=== PATIENT | female | born 1970 | race African-American/Black ===

== ENCOUNTER 2017-05-23 17:29 | Emergency (ER) | payer MEDICAID, OTHER ==
[~2017-05-23] VITALS: Ht 157.5 cm; Wt 132.0 kg
[2017-05-23] VITALS (8 sets, daily range): BP systolic 170–207; BP diastolic 73–100; PULSE 61–107; RESP 16–18; TEMP 98.4; O2SAT 99–100
[~2017-05-23 17:29] MED LIST: DICY1TAB26 PO; DOCU1CAP39 PO; GLUCTAB PO; HYDR-3533 PO; HYDR12.56 PO; IRON27TA PO; LISI40TA PO
[2017-05-23] MEDS ORDERED: HYDR25TA5 PO ×2 (18:03→21:21)
[2017-05-23] MEDS ORDERED: LISI10TA3 PO ×2 (18:03→21:21)
[2017-05-23] MEDS ORDERED: SODIUM CHLORIDE 0.9% FLUSH 10 ML FLUSH IVF PRN (18:15)
[2017-05-23] MEDS ORDERED: traMADol HCL 50 MG TAB PO ONE (18:15)
[2017-05-23] MEDS ORDERED: ENALAPRILAT 2.5 MG/2 ML VIAL IV PUSH ONE (18:15)
[2017-05-23] MEDS ORDERED: ORPHENADRINE INJ 60 MG/2 ML AMP IV ONE (18:15)
--- NOTE | 2017-05-23 18:23 | PD ---
HPI Chief Complaint: Musculoskeletal Complaint Time Seen by Provider: 17:56 Travel History International Travel<30 days: No Contact w/Intl Traveler<30days: No Traveled to known affect area: No History of Present Illness HPI Patient is a 47-year-old female presented to the emergency room for evaluation of left arm numbness. Patient states it started on Sunday, she woke up with pain that radiated down her arm into her second and third finger. Patient has been taking ibuprofen and Tylenol with no relief of her symptoms. She called her primary doctor today and was advised to come to the emergency department for evaluation. Patient has no chest pain, shortness of breath, headache, fever , chills, nausea, vomiting. She does report a history of hypertension has been out of her blood pressure medication for the last 3 days because they have to be sent to her mail order pharmacy. Patient has a history of hypertension, diabetes, obesity. She reports her father from a heart attack in his 60s, her mother had a stroke in her 70s. Symptom onset was gradual,, symptoms are mild to moderate nature, symptoms are worse at night. PFSH Past Medical History Diabetes: Yes (PRE-DIABETIC) Hypertension: Yes ?: Not LMP: 04/2016 : 3 Para: 3 Miscarriage: 0 : 0 Past Surgical History Cholecystectomy: Yes Coronary Artery Bypass Graft: No Family History Family Myocardial Infarction: Yes (father massive [place]) Social History Alcohol Use: No (DENIES) Tobacco Use: No (DENIES) Substance Use: No (DENIES) Allergies-Medications (Allergen,Severity, Reaction): Coded Allergies: morphine (Unverified Allergy, Unknown, 09/26/16) Reported Meds & Prescriptions Reported Meds & Active Scripts Active Reported Hydrochlorothiazide 25 Mg Tab 25 Mg PO Lisinopril 10 Mg Tab 10 Mg PO DAILY Review of Systems Except as stated in HPI: all other systems reviewed are Neg HENT: No: Headaches Cardiovascular: No: Chest Pain or Discomfort Respiratory: No: Shortness of Breath Gastrointestinal: No: Nausea, Vomiting, Abdominal Pain Musculoskeletal: Positive: Myalgias Neurologic: Positive: Paresthesia, No: Weakness, Focal Abnormalities Physical Exam Narrative GENERAL: Overweight, well-developed, alert -[place] female. Presenting in no acute distress. SKIN: Warm and dry. HEAD: Atraumatic. Normocephalic. EYES: Pupils equal and round. No scleral icterus. No injection or drainage. ENT: No nasal bleeding or discharge. Mucous membranes pink and moist. NECK: Trachea midline. No JVD. CARDIOVASCULAR: Regular rate and rhythm. RESPIRATORY: No accessory muscle use. Clear to auscultation. Breath sounds equal bilaterally. GASTROINTESTINAL: Abdomen soft, non-tender, nondistended. Hepatic and splenic margins not palpable. MUSCULOSKELETAL: Extremities without clubbing, cyanosis, or edema. No obvious deformities. Tender point to palpation over left scapula. NEUROLOGICAL: Awake and alert. No obvious cranial nerve deficits. Motor grossly within normal limits. Five out of 5 muscle strength in the arms and legs. Normal speech. PSYCHIATRIC: Appropriate mood and affect; insight and judgment normal. Data Data Last Documented VS Vital Signs Date Time Temp Pulse Resp B/P (MAP) Pulse Ox O2 Delivery O2 Flow Rate FiO2 05/23/17 21:07 83 16 170/76 (107) 100 05/23/17 20:05 Room Air 05/23/17 17:37 98.4 Orders Orders Electrocardiogram (05/23/17 18:) Basic Metabolic Panel (Bmp) (05/23/17 18:09) Ckmb (Isoenzyme) Profile (05/23/17 18:09) Complete Blood Count With Diff (05/23/17 18:) Magnesium (Mg) (05/23/17 18:09) Troponin I (05/23/17 18:09) Chest, Single Ap (05/23/17 18:09) Ecg Monitoring (05/23/17 18:09) Iv Access Insert/Monitor (05/23/17 18:) Oximetry (05/23/17 18:) Sodium Chloride 0.9% Flush (Ns Flush) (05/23/17 18:15) Enalaprilat Inj (Vasotec Inj) (05/23/17 18:15) Tramadol (Ultram) (05/23/17 18:15) Orphenadrine Inj (Norflex Inj) (05/23/17 18:15) Hydralazine Inj (Apresoline Inj) (05/23/17 19:45) CKMB (05/23/17 18:45) CKMB% (05/23/17 18:45) Metoprolol Tartrate Inj (Lopressor Inj) (05/23/17 21:00) Labs Laboratory Tests Test 05/23/17 18:45 White Blood Count 7.9 TH/MM3 Red Blood Count 4.56 MIL/MM3 Hemoglobin 9.4 GM/DL Hematocrit 30.2 % Mean Corpuscular Volume 66.2 FL Mean Corpuscular Hemoglobin 20.5 PG Mean Corpuscular Hemoglobin Concent 31.0 % Red Cell Distribution Width 17.4 % Platelet Count 330 TH/MM3 Mean Platelet Volume 9.0 FL Neutrophils (%) (Auto) 60.2 % Lymphocytes (%) (Auto) 33.2 % Monocytes (%) (Auto) 4.2 % Eosinophils (%) (Auto) 1.9 % Basophils (%) (Auto) 0.5 % Neutrophils # (Auto) 4.8 TH/MM3 Lymphocytes # (Auto) 2.6 TH/MM3 Monocytes # (Auto) 0.3 TH/MM3 Eosinophils # (Auto) 0.1 TH/MM3 Basophils # (Auto) 0.0 TH/MM3 CBC Comment DIFF FINAL Differential Comment Blood Urea Nitrogen 13 MG/DL Creatinine 0.72 MG/DL Random Glucose 117 MG/DL Calcium Level 8.8 MG/DL Magnesium Level 1.9 MG/DL Sodium Level 136 MEQ/L Potassium Level 4.2 MEQ/L Chloride Level 106 MEQ/L Carbon Dioxide Level 23.3 MEQ/L Anion Gap 7 MEQ/L Estimat Glomerular Filtration Rate 105 ML/MIN Total Creatine Kinase 161 U/L Creatine Kinase MB 0.8 NG/ML Troponin I LESS THAN 0.02 NG/ML MDM Medical Decision Making Medical Screen Exam Complete: Yes Emergency Medical Condition: Yes Interpretation(s) Vital Signs Date Time Temp Pulse Resp B/P (MAP) Pulse Ox O2 Delivery O2 Flow Rate FiO2 05/23/17 21:07 83 16 170/76 (107) 100 05/23/17 20:47 106 16 206/73 (117) 99 05/23/17 20:05 107 16 203/92 (129) 100 Room Air 05/23/17 19:10 64 16 199/100 (133) 100 Room Air 05/23/17 18:48 61 17 178/82 (114) 100 Room Air 05/23/17 18:37 100 Room Air 05/23/17 17:57 85 17 207/98 (134) 100 Room Air 05/23/17 17:37 98.4 81 18 197/91 (126) 100 Laboratory Tests Test 05/23/17 18:45 White Blood Count 7.9 TH/MM3 Red Blood Count 4.56 MIL/MM3 Hemoglobin 9.4 GM/DL Hematocrit 30.2 % Mean Corpuscular Volume 66.2 FL Mean Corpuscular Hemoglobin 20.5 PG Mean Corpuscular Hemoglobin Concent 31.0 % Red Cell Distribution Width 17.4 % Platelet Count 330 TH/MM3 Mean Platelet Volume 9.0 FL Neutrophils (%) (Auto) 60.2 % Lymphocytes (%) (Auto) 33.2 % Monocytes (%) (Auto) 4.2 % Eosinophils (%) (Auto) 1.9 % Basophils (%) (Auto) 0.5 % Neutrophils # (Auto) 4.8 TH/MM3 Lymphocytes # (Auto) 2.6 TH/MM3 Monocytes # (Auto) 0.3 TH/MM3 Eosinophils # (Auto) 0.1 TH/MM3 Basophils # (Auto) 0.0 TH/MM3 CBC Comment DIFF FINAL Differential Comment Blood Urea Nitrogen 13 MG/DL Creatinine 0.72 MG/DL Random Glucose 117 MG/DL Calcium Level 8.8 MG/DL Magnesium Level 1.9 MG/DL Sodium Level 136 MEQ/L Potassium Level 4.2 MEQ/L Chloride Level 106 MEQ/L Carbon Dioxide Level 23.3 MEQ/L Anion Gap 7 MEQ/L Estimat Glomerular Filtration Rate 105 ML/MIN Total Creatine Kinase 161 U/L Creatine Kinase MB 0.8 NG/ML Troponin I LESS THAN 0.02 NG/ML Last Impressions Chest X-Ray 05/23/17 0237 Signed Impressions: Service Date/Time: Tuesday, May 23, 2017 18:21 - CONCLUSION: No acute disease. Darius Jay MD Differential Diagnosis Hypertensive urgency versus radiculopathy versus nerve impingement versus ACS versus other Narrative Course Patient is a 47-year-old female presenting to the emergency department for evaluation of left arm numbness and pain. Patient is hypertensive on arrival, she has a history of the same but is out of her medications. Initial EKG shows sinus rhythm, this was reviewed by my attending physician. Onset of symptoms was 48 hours ago. At this point we will check basic labs and a set of cardiac enzymes. Physical exam appears most consistent with radiculopathy, nerve impingement. Labs reviewed, no acute findings identified. Cardiac enzymes are negative 1 set. Patient was initially given Enalapril IV, her blood pressure continued to be elevated. She was then given hydralazine, this cause rebound tachycardia, her blood pressure remained elevated. She was then given Lopressor, blood pressure has trended down and is currently 170/76. Again patient has been chest pain- free the entire time, she never had any complaint of chest pain. Exam is consistent with a radiculopathy. Patient will be discharged home, she will be given refills of her medications. She will given a muscle relaxer as well. She is encouraged to follow-up with her primary doctor. She was advised to return to emergency department for any new or worsening symptoms. Plan of care was discussed with Dr. Becker prior to the end of his shift. Negative enzymes, and normal EKG is reassuring that patient's pain is not of cardiac etiology. Diagnosis Primary Impression: Radiculopathy affecting upper extremity Additional Impression: HTN (hypertension) Qualified Codes: I10 - Essential (primary) hypertension Referrals: Primary Care Physician 2 days Patient Instructions: Cervical Radiculopathy (ED), General Instructions, Hypertension (ED) Additional Instructions: Follow-up with your primary doctor Take medications as directed Return to emergency department for any new or worsening symptoms Apply warm heat to the affected area, continue gentle range of motion exercises , avoid exacerbating activities Med/Other Pt SpecificInfo: Prescription(s) given Scripts Acetaminophen-Codeine (Tylenol-Codeine #3) 300-30 mg Tab 1 TAB PO Q4H Y for PAIN, #12 TAB 0 Refills Prov: Brigette Christina 05/23/17 Cyclobenzaprine (Flexeril) 10 Mg Tab 10 MG PO TID Y for MUSCLE SPASM, #30 TAB 0 Refills Prov: Brigette Christina 05/23/17 Hydrochlorothiazide (Hydrochlorothiazide) 25 Mg Tab 25 MG PO DAILY, #30 TAB 0 Refills Prov: Brigette Christina 05/23/17 Lisinopril (Lisinopril) 10 Mg Tab 10 MG PO DAILY, #30 TAB 0 Refills Prov: Brigette Christina 05/23/17 Disposition: 01 DISCHARGE HOME Condition: Stable Brigette Christina May 23, 2017 18:23
--- NOTE | 2017-05-23 18:48 | RADRPT ---
EXAM DATE/TIME: 05/23/2017 18:21 [facility] COMPARISON: CHEST SINGLE AP, May 21, 2015, 23:40. INDICATIONS : Chest pain, left arm numbness starting today MEDICAL HISTORY : Hypertension. SURGICAL HISTORY : None. ENCOUNTER: Initial ACUITY: 1 day PAIN SCORE: 5/10 LOCATION: Left chest FINDINGS: A single view of the chest demonstrates the lungs to be symmetrically aerated without evidence of mas s, infiltrate or effusion. The cardiomediastinal contours are unremarkable. Osseous structures are intact. CONCLUSION: No acute disease. Darius Jay MD on May 23, 2017 at 18:45 Board Certified Radiologist. This report was verified electronically.
[2017-05-23 19:13] LABS: AUTOMATED NEUTROPHIL # 4.8 TH/MM3 (1.8-7.7); BASOPHIL % 0.5 % (0.0-2.0); EOSINOPHIL # 0.1 TH/MM3 (0-0.4); EOSINOPHIL % 1.9 % (0.0-4.0); HEMATOCRIT 30.2 % (35.0-46.0); HEMOGLOBIN 9.4 GM/DL (11.6-15.3); LYMPH % 33.2 % (9.0-44.0); LYMPHOCYTE # 2.6 TH/MM3 (1.0-4.8); MEAN CELL VOLUME 66.2 FL (80.0-100.0); MEAN CORPUSCULAR HEMOGLOBIN 20.5 PG (27.0-34.0); MONO % 4.2 % (0.0-8.0); MONOCYTE # 0.3 TH/MM3 (0-0.9); NEUT % 60.2 % (16.0-70.0); PLATELET COUNT 330 TH/MM3 (150-450); RED BLOOD COUNT 4.56 MIL/MM3 (4.00-5.30); RED CELL DISTRIBUTION WIDTH 17.4 % (11.6-17.2); WHITE BLOOD COUNT 7.9 TH/MM3 (4.0-11.0)
[2017-05-23 19:35] LABS: BICARBONATE 23.3 MEQ/L (21.0-32.0); BLOOD UREA NITROGEN 13 MG/DL (7-18); CALCIUM 8.8 MG/DL (8.5-10.1); CHLORIDE 106 MEQ/L (98-107); CREATININE 0.72 MG/DL (0.50-1.00); GLOMERULAR FILTRATION RATE 105 ML/MIN (>89); GLUCOSE,RANDOM 117 MG/DL (74-106); MAGNESIUM 1.9 MG/DL (1.5-2.5); SODIUM (NA) 136 MEQ/L (136-145)
[2017-05-23 19:41] LABS: TROPONIN I LESS THAN 0.02 NG/ML (0.02-0.05)
[2017-05-23] MEDS ORDERED: hydrALAZINE HCL 20 MG/ML VIAL IV PUSH ONE (19:45)
[2017-05-23] MEDS ORDERED: METOPROLOL TARTRATE 5 MG/5 ML VIAL IV PUSH ONE (21:00)
[2017-05-23] MEDS ORDERED: TYLETAB34 PO (21:21)
[2017-05-23] MEDS ORDERED: CYCL10TA PO (21:21)
--- NOTE | 2017-05-24 18:53 | EKG ---
Date Performed: 05/23/2017 Time Performed: 18:02:19 PTAGE: 47 years EKG: Sinus rhythm NORMAL ECG Since the PREVIOUS TRACING , no significant change noted PREVIOUS TRACIN05/22/15 @0554 DOCTOR: Justo Sood Interpretating Date/Time 05/24/2017 18:48:48
== END 2017-05-23 21:36 | disposition home or self-care (01) ==
LOC: NEPE 17:29
DX: M54.10 Radiculopathy, site unspecified (principal); I10 Essential (primary) hypertension; M79.1 Myalgia; E11.9 Type 2 diabetes mellitus without complications; E66.9 Obesity, unspecified; Z88.5 Allergy status to narcotic agent; Z79.899 Other long term (current) drug therapy
CPT/HCPCS: 71045; 80048; 82550; 82552; 83735; 84484; 85025; 93005; 96374; 96375; 99285; J0360; J2360

== ENCOUNTER 2017-10-08 22:51 | Observation (INO) ==
[2017-10-08] MEDS ORDERED: Sodium Chlor 0.9% Inj 500 ML IV.SIG ONE (23:37)
--- NOTE | 2017-10-08 23:56 | XR ---
EXAM DATE: 10/08/2017 11:54 PM EDT AGE/SEX: 47 years / Female INDICATIONS: Left side chest pressure for 2 days. CLINICAL DATA: This is the patient's initial encounter. Patient reports that signs and symptoms have been present for 2 days and indicates a pain score of 0/10. MEDICAL/SURGICAL HISTORY: Hypertension. Cholecystectomy. COMPARISON: [facility] [place], CHEST SINGLE AP, 05/23/2017. . FINDINGS: A single AP view of the chest demonstrates the lungs to be symmetrically aerated without evidence of mass, infiltrate or effusion. The cardiomediastinal contours are unremarkable. Osseous structures a re intact. CONCLUSION: No evidence of acute cardiopulmonary disease. Electronically signed by: Bran Charles MD 10/08/2017 11:55 PM EDT
[2017-10-08 23:58] LABS: Baso # (Auto) 0.1 th/mm3 (0.0-0.2); Baso % (Auto) 0.6 % (0.0-2.0); Eos # (Auto) 0.1 th/mm3 (0.0-0.4); Eos % (Auto) 1.3 % (0.0-4.0); Hematocrit 34.1 % (35.0-46.0); Hemoglobin 10.7 gm/dL (11.6-15.3); Lymph # (Auto) 2.3 th/mm3 (1.0-4.8); Lymph % (Auto) 27.6 % (9.0-44.0); Mean Corpuscular HGB Conc 31.3 % (32.0-36.0); Mean Corpuscular Hemoglobin 21.3 pg (27.0-34.0); Mean Corpuscular Volume 68.2 fL (80.0-100.0); Mean Platelet Volume 9.4 fL (7.0-11.0); Mono # (Auto) 0.4 th/mm3 (0.0-0.9); Mono % (Auto) 4.4 % (0.0-8.0); Neut # (Auto) 5.5 th/mm3 (1.8-7.7); Neut % (Auto) 66.1 % (16.0-70.0); Platelet Count 295 th/mm3 (150-450); Red Cell Distribution Width 16.6 % (11.6-17.2); White Blood Count 8.3 th/mm3 (4.0-11.0)
[2017-10-09 00:08] LABS: Activated Partial Thrombo Time 26.8 sec (24.3-30.1)
[2017-10-09 00:10] LABS: Alanine Aminotransferase 17 U/L (10-53); Albumin 3.5 g/dL (3.4-5.0); Anion Gap 11 meq/L (5-15); Aspartate Aminotransferase 10 U/L (15-37); Blood Urea Nitrogen 14 mg/dL (7-18); Calcium 8.8 mg/dL (8.5-10.1); Carbon Dioxide 27.7 meq/L (21.0-32.0); Chloride 100 meq/L (98-107); Glomerular Filtration Rate 60 mL/min (>89); Glucose,Random 295 mg/dL (74-106); Magnesium 1.8 mg/dL (1.5-2.5); Potassium 3.7 meq/L (3.5-5.1); Sodium 139 meq/L (136-145)
[2017-10-09 00:11] VITALS: RESP 18
[2017-10-09 00:18] LABS: Alkaline Phosphatase 107 U/L (45-117); Total Protein 8.2 g/dL (6.4-8.2)
[2017-10-09 00:19] LABS: Creatine Kinase 90 U/L (26-192)
--- NOTE | 2017-10-09 01:53 | ED ---
HPI General Chief complaint: Recheck/Abnormal Lab/Rx Stated complaint: Elelvated blood sugar/some chest pressure Time Seen by Provider: 10/08/17 23:35 Source: patient Limitations: no limitations History of Present Illness HPI narrative: The patient is a 47 year old female who presents to the [facility] emergency department with a history of reportedly not feeling well over the last 2 weeks. She reports that she has had generalized fatigue, with dyspnea on exertion, and intermittent twinges of left-sided chest pain. She reports that the chest pain is random without any alleviating or aggravating factors. She reports that the pain feels sharp and lasts for 10 seconds at a time. The patient reports that this evening she became concerned when she checked her blood sugar and it was noted to be 426. She reports that she normally checks her blood sugar 3 times a day. She reports that has been higher than usual recently. She reports that she has had urinary frequency. Her last hemoglobin A1c was 7.1. She reports that she had episodes of low blood sugar, therefore her metformin was decreased down to 1000 mg once a day by her primary care physician. Her primary care physician is Dr. Lemus. She reports having intermittent episodes of nausea over the last 2 weeks. She denies having any radiation of her chest pain into her arms or up into her jaw. She denies having any prior history of coronary artery disease, DVT, or PE. The patient reports that she has a history of hypertension. She denies any prior history of hyperlipidemia. She denies smoking. On review of systems otherwise, the patient denies having any known recent fevers, cough, congestion , neck pain, abdominal pain, vomiting, diarrhea, urinary symptoms, or neurologic symptoms. Related Data Home Medications Medication Instructions Recorded Confirmed hydrochlorothiazide 25 mg PO DAILY 10/09/17 10/09/17 lisinopril 10 mg PO DAILY 10/09/17 10/09/17 Previous Rx's Medication Instructions Recorded amlodipine [Norvasc] 5 mg PO DAILY tab 10/09/17 metformin 500 mg PO DAILY #0 tab 10/09/17 Allergies Allergy/AdvReac Type Severity Reaction Status Date / Time hydralazine Allergy Severe Tachycardia Verified 10/09/17 08:57 morphine Allergy Severe Shortness Verified 10/09/17 08:57 of Breath Review of Systems ROS: all other systems reviewed are negative (Except for that which was mentioned in the HPI.) PMFSH Medical History Medical History Anemia (Acute) Diabetes (Acute) Gallbladder disease (Acute) Hypertension (Acute) Family History Family History Other Family history of acute myocardial infarction Family history of cancer Family history of diabetes mellitus Social History Social History Substance History: No History of Abuse Second Hand Smoke Exposure: No Smoking Status: Never smoker How Often Do You Have a Drink Containing Alcohol: Monthly or less Recent Travel in [facility] within the Last 8 Weeks: No Recent Out of Country Travel within the Last 8 Weeks: No Immunization History Tetanus Immunization: <5 Years Hx Influenza Vaccine This Season: Yes Exam Const General: cooperative, no acute distress and well developed Nutritional Appearance: obese Orientation: alert, awake and oriented x3 HENMT Head: normocephalic and atraumatic Nose: no nasal discharge and no epistaxis Mouth: moist mucous membranes Throat: posterior oropharynx normal and uvula midline Eyes Sclera: normal sclerae Pupils: PERRL Neck Neck: no meningeal signs, trachea midline and no JVD Resp Effort & Inspection: no use of accessory muscles Auscultation: clear to auscultation bilaterally Cardio Rate: regular rate Rhythm: regular rhythm Heart Sounds: no gallops, no murmurs and no rubs GI Inspection: non-distended Palpation: soft, no hepatosplenomegaly, no guarding, not rigid and nontender Auscultation: normal bowel sounds Back/Spine/Pelvis Back: no CVA tenderness Skin General: dry skin (warm) Neuro General: alert, awake and oriented x3 Cranial Nerves: other Speech: speech normal Motor: no movement abnormalities noted Extrem General: normal to inspection (The patient has an area of swelling to the medial aspect of the left ankle which she reports is new. She denies having any pain associated with this. She denies having any calf pain. 2+ pulses in all 4 extremities.), no clubbing, no cyanosis and no edema Psych Mood: congruent mood Affect: normal affect Judgment: judgment good Course Initial Documented Vital Signs Temperature 98.8 F 10/08/17 22:56 Pulse Rate 109 H 10/08/17 22:56 Respiratory Rate 22 10/08/17 22:56 Blood Pressure 179/96 H 10/08/17 22:56 Pulse Oximetry 100 10/08/17 22:56 Last Documented Vital Signs Temperature 98.8 F 10/09/17 16:00 Pulse Rate 80 10/09/17 16:00 Respiratory Rate 18 10/09/17 16:00 Blood Pressure 149/76 H 10/09/17 16:00 Pulse Oximetry 99 10/09/17 12:00 Medical Decision Making MDM Narrative Medical decision making narrative: During the course of the patient's emergency department visit, the patient's history, examination, and differential diagnosis were reviewed with the patient. The patient was placed on a school bus monitor with oximetry and frequent blood pressure monitoring. The patient had IV access obtained and blood work sent for analysis. A diagnostic evaluation was started regarding the patient's chest pain, shortness of breath, fatigue over the last 2 weeks. The patient was initially provided aspirin 324 mg p.o. 1, sublingual nitroglycerin 1, normal saline a 500 mL bolus. The patient's diagnostic evaluation is remarkable for PT of 10, PTT 26.8, d- dimer elevated at 0.95, therefore a CTA to rule out PE has been ordered.The patient had a chemistry remarkable for troponin I less than 0.02, glucose 295, GFR 60, creatinine 1.17, BNP less than 2, AST 10, lipase within normal limits at 176, magnesium 1.8, WbC is 8.3 with a normal differential, platelets are 295 , hemoglobin is 10.7. A chest x-ray shows no acute cardiopulmonary disease. CTA to rule out PE showed no evidence of pulmonary embolism. The patient has multiple risk factors for coronary artery disease. The patient will be admitted to the chest pain center for rule out serial cardiac enzyme protocol followed by consideration of stress testing. The patient's results were discussed with the patient, including the plan of care. I explained that further testing and/ or monitoring is indicated based on the patient's history, examination, and/ or laboratory findings. Therefore, I recommended admission for additional evaluation. The patient expressed understanding and was agreeable with this plan. The patient was admitted to the hospital in stable condition and sent to a bed under the care of the [facility]. Medical Screen Exam Complete: Yes Emergency Medical Condition: Yes Differential Diagnosis Differential Diagnosis: Acute coronary syndrome, versus complications related to diabetes, versus pulmonary embolism, versus pneumonia, versus pneumothorax, versus acid reflux, versus anxiety disorder Medical Records Medical records reviewed: Yes I reviewed the patient's medical records. Lab Data Result diagrams: 10/08/17 23:47 10/08/17 23:47 POC Results POC Urine Results Negative Lab Results 10/08/17 10/08/17 10/08/17 Range/Units 23:47 23:47 23:47 WBC (4.0-11.0) th/mm3 RBC (4.00-5.30) mil/mm3 Hgb (11.6-15.3) gm/dL Hct (35.0-46.0) % MCV (80.0-100.0) fL MCH (27.0-34.0) pg MCHC (32.0-36.0) % RDW (11.6-17.2) % Plt Count (150-450) th/mm3 MPV (7.0-11.0) fL Neut % (Auto) (16.0-70.0) % Lymph % (Auto) (9.0-44.0) % Schleicher % (Auto) (0.0-8.0) % Eos % (Auto) (0.0-4.0) % Baso % (Auto) (0.0-2.0) % Neut # (Auto) (1.8-7.7) th/mm3 Lymph # (Auto) (1.0-4.8) th/mm3 Schleicher # (Auto) (0.0-0.9) th/mm3 Eos # (Auto) (0.0-0.4) th/mm3 Baso # (Auto) (0.0-0.2) th/mm3 WBC Differential Differential Comment PT (9.8-11.6) sec INR Ratio APTT (24.3-30.1) sec D-Dimer Quant (PE/DVT) 0.95 H (0.00-0.50) mg/L FEU Sodium (136-145) meq/L Potassium (3.5-5.1) meq/L Chloride (98-107) meq/L Carbon Dioxide (21.0-32.0) meq/L Anion Gap (5-15) meq/L BUN (7-18) mg/dL Creatinine (0.50-1.00) mg/dL Estimated GFR (>89) mL/min POC Glucose (68-110) mg/dl Random Glucose (74-106) mg/dL Calcium (8.5-10.1) mg/dL Magnesium (1.5-2.5) mg/dL Total Bilirubin (0.2-1.0) mg/dL AST (15-37) U/L ALT (10-53) U/L Alkaline Phosphatase (45-117) U/L Total Creatine Kinase (26-192) U/L Troponin I (0.02-0.05) ng/mL B-Natriuretic Peptide Less than 2 (0-100) pg/mL Total Protein (6.4-8.2) g/dL Albumin (3.4-5.0) g/dL Lipase 176 (73-393) U/L 10/08/17 10/08/17 10/08/17 Range/Units 23:47 23:47 23:47 WBC 8.3 (4.0-11.0) th/mm3 RBC 5.00 (4.00-5.30) mil/mm3 Hgb 10.7 L (11.6-15.3) gm/dL Hct 34.1 L (35.0-46.0) % MCV 68.2 L (80.0-100.0) fL MCH 21.3 L (27.0-34.0) pg MCHC 31.3 L (32.0-36.0) % RDW 16.6 (11.6-17.2) % Plt Count 295 (150-450) th/mm3 MPV 9.4 (7.0-11.0) fL Neut % (Auto) 66.1 (16.0-70.0) % Lymph % (Auto) 27.6 (9.0-44.0) % Schleicher % (Auto) 4.4 (0.0-8.0) % Eos % (Auto) 1.3 (0.0-4.0) % Baso % (Auto) 0.6 (0.0-2.0) % Neut # (Auto) 5.5 (1.8-7.7) th/mm3 Lymph # (Auto) 2.3 (1.0-4.8) th/mm3 Schleicher # (Auto) 0.4 (0.0-0.9) th/mm3 Eos # (Auto) 0.1 (0.0-0.4) th/mm3 Baso # (Auto) 0.1 (0.0-0.2) th/mm3 WBC Differential . Differential Comment Auto diff final PT 10.0 (9.8-11.6) sec INR 1.0 Ratio APTT 26.8 (24.3-30.1) sec D-Dimer Quant (PE/DVT) (0.00-0.50) mg/L FEU Sodium 139 (136-145) meq/L Potassium 3.7 (3.5-5.1) meq/L Chloride 100 (98-107) meq/L Carbon Dioxide 27.7 (21.0-32.0) meq/L Anion Gap 11 (5-15) meq/L BUN 14 (7-18) mg/dL Creatinine 1.17 H (0.50-1.00) mg/dL Estimated GFR 60 L (>89) mL/min POC Glucose (68-110) mg/dl Random Glucose 295 H (74-106) mg/dL Calcium 8.8 (8.5-10.1) mg/dL Magnesium 1.8 (1.5-2.5) mg/dL Total Bilirubin 0.4 (0.2-1.0) mg/dL AST 10 L (15-37) U/L ALT 17 (10-53) U/L Alkaline Phosphatase 107 (45-117) U/L Total Creatine Kinase 90 (26-192) U/L Troponin I Less than 0.02 L (0.02-0.05) ng/mL B-Natriuretic Peptide (0-100) pg/mL Total Protein 8.2 (6.4-8.2) g/dL Albumin 3.5 (3.4-5.0) g/dL Lipase (73-393) U/L 10/09/17 10/09/17 10/09/17 Range/Units 08:28 08:34 12:59 WBC (4.0-11.0) th/mm3 RBC (4.00-5.30) mil/mm3 Hgb (11.6-15.3) gm/dL Hct (35.0-46.0) % MCV (80.0-100.0) fL MCH (27.0-34.0) pg MCHC (32.0-36.0) % RDW (11.6-17.2) % Plt Count (150-450) th/mm3 MPV (7.0-11.0) fL Neut % (Auto) (16.0-70.0) % Lymph % (Auto) (9.0-44.0) % Schleicher % (Auto) (0.0-8.0) % Eos % (Auto) (0.0-4.0) % Baso % (Auto) (0.0-2.0) % Neut # (Auto) (1.8-7.7) th/mm3 Lymph # (Auto) (1.0-4.8) th/mm3 Schleicher # (Auto) (0.0-0.9) th/mm3 Eos # (Auto) (0.0-0.4) th/mm3 Baso # (Auto) (0.0-0.2) th/mm3 WBC Differential Differential Comment PT (9.8-11.6) sec INR Ratio APTT (24.3-30.1) sec D-Dimer Quant (PE/DVT) (0.00-0.50) mg/L FEU Sodium (136-145) meq/L Potassium (3.5-5.1) meq/L Chloride (98-107) meq/L Carbon Dioxide (21.0-32.0) meq/L Anion Gap (5-15) meq/L BUN (7-18) mg/dL Creatinine (0.50-1.00) mg/dL Estimated GFR (>89) mL/min POC Glucose 254 H 224 H (68-110) mg/dl Random Glucose (74-106) mg/dL Calcium (8.5-10.1) mg/dL Magnesium (1.5-2.5) mg/dL Total Bilirubin (0.2-1.0) mg/dL AST (15-37) U/L ALT (10-53) U/L Alkaline Phosphatase (45-117) U/L Total Creatine Kinase (26-192) U/L Troponin I Less than 0.02 L (0.02-0.05) ng/mL B-Natriuretic Peptide (0-100) pg/mL Total Protein (6.4-8.2) g/dL Albumin (3.4-5.0) g/dL Lipase (73-393) U/L Imaging Data Radiologist's impression: Chest X-Ray 10/08/17 23:38 CONCLUSION: No evidence of acute cardiopulmonary disease. Chest CTA 10/09/17 01:54 CONCLUSION: 1. No pulmonary embolus. 2. Atelectasis versus early/mild pneumonia of the left lower lobe. Myocardial Perfusion Scan Nuc Med 10/09/17 08:20 CONCLUSION: 1. Small reversible perfusion defect lateral wall. 2. Normal ejection fraction. ECG Data Attestation: I personally reviewed and interpreted this ECG as follows: Interpretation: The patient had an EKG done on arrival. The patient's EKG reveals a sinus rhythm heart rate of 93, QRS duration 84 ms, QTC 389 ms. The patient has T waves that are inverted in lead III, V1. Nonspecific T-wave abnormalities are also noted in lead V4, V5, V6. Discharge Plan Discharge Disposition Patient Disposition: 30 Still Patient Discharge Condition Condition: Stable Discharge Order Discharge Orders: Discharge Order (Routine); Ordered 10/09/17 Ordered By: Niranjan Christianson Discharge Details Discharge Comment: Discuss taking statin medication which is a cholesterol medication with your primary care physician for preventive medicine with your history of diabetes. DO NOT TAKE METFORMIN FOR TWO DAYS. Diagnosis: Chest pain, rule out acute myocardial infarction Physicians Team ED Provider: Natali Mendez Primary Care Provider: Arnoldo Lemus V Attending Provider: Mikey Mendez Other Providers: [facility],Insurance Status ED Status: Left Department Discharge Information Discharge Date/Time: 10/09/17 07:58
--- NOTE | 2017-10-09 02:29 | CT ---
EXAM DATE: 10/09/2017 2:23 AM EDT AGE/SEX: 47 years / Female INDICATIONS: Chest pain. CLINICAL DATA: This is the patient's initial encounter. Patient reports that signs and symptoms have been present for 1 day and indicates a pain score of 7/10. MEDICAL/SURGICAL HISTORY: Diabetes. Cholecystectomy. RADIATION DOSE: 10.47 CTDI (mGy) COMPARISON: [facility], CHEST 1V SINGLE AP, 10/08/2017. . TECHNIQUE: Volumetric scanning was performed using a multi-row detector CT scanner during bolus infu edin of 80 ml Omnipaque 350 (iohexol) nonionic water-soluble contrast as a single exam dose. The dayana a was post processed with a variety of visualization algorithms including full volume maximum intensi ty projection and sliding thin slab reformation. Using automated exposure control and adjustment of the mA and/or kV according to patient size, radiation dose was kept as low as reasonably achievable t o obtain optimal diagnostic quality images. DICOM format image data is available electronically for review and comparison. FINDINGS: Pulmonary Arteries: No filling defects are seen in the pulmonary arteries out to the subsegmental ve ssels. The left and right pulmonary arteries are normal in diameter. Lung: Mild left lower lobe infiltrate seen. Effusion: None. Mediastinum: No evidence of mediastinal or hilar adenopathy. Other: The axilla is unremarkable. CONCLUSION: 1. No pulmonary embolus. 2. Atelectasis versus early/mild pneumonia of the left lower lobe. Electronically signed by: Bran Charles MD 10/09/2017 2:28 AM EDT
[2017-10-09] MEDS ORDERED: Lisinopril 10 MG Tablet PO SCH (09:45)
[2017-10-09] MEDS ORDERED: hydroCHLOROthiazide 25 MG Tablet PO SCH (09:45)
[2017-10-09] MEDS ORDERED: Regadenoson Inj 0.4 MG/5 ML Syringe IV.PUSH ONE (11:32)
--- NOTE | 2017-10-09 12:35 | P.HPCA ---
History of Present Illness Primary Care Physician: Arnoldo Lemus MD Chief Complaint: Chest pain History of Present Illness: This is a 47-year-old female with history of hypertension and diabetes that presents to be evaluated for left-sided chest discomfort that began yesterday. There was short. The last 15-20 seconds but continued to recur throughout the day. Nothing in particular seemed to bring on the discomfort. Denied associated shortness breath, nausea, diaphoresis. Cannot recall prior cardiac workup. Denies . Denies recent illness. Currently denies chest discomfort. Discomfort did not radiate. Patient has history of hypertension diabetes. Does not take statin medication at this time. States that her father had an [facility] at age 42. Patient is a non-smoker. - Diagnosis (1) Chest pain (2) Hypertension (3) Diabetes Review of Systems General: Patient denies fevers, chills, and recent travel. HEENT: Patient denies headache, sore throat, difficulty swallowing. Cardiovascular: Has the chest discomfort as mentioned above. Denies sensation of heart beating rapidly or irregularly. No syncope. Denies diaphoresis. Respiratory: Denies shortness of breath or inspirational chest discomfort. Denies coughing wheezing or hemoptysis. GI: Patient denies nausea, vomiting, diarrhea, abdominal pain, bloody stools. Musculoskeletal: Patient denies joint pain or edema. Denies calf pain or edema. Neurovascular: Patient denies numbness, tingling, weakness in extremities. Denies headache. Endocrine: Denies polyuria and polydipsia. Hematologic: Denies easy bruising. Skin: Denies rash or itching. PMFSH - History History Provided By: Patient - Medical History Medical History: Medical History (Last Updated 10/09/17 @ 08:55 by Kayla Teague RN) Anemia Diabetes Gallbladder disease Hypertension - Surgical History Surgical History: Surgical History (Last Reviewed 10/09/17 @ 08:56 by Kayla Teague RN) History of cholecystectomy - Family History Family History: Family History (Last Updated 10/09/17 @ 08:56 by Kayla Teague RN) Other Family history of acute myocardial infarction Family history of cancer Family history of diabetes mellitus - Tobacco History Second Hand Smoke Exposure: No Tobacco Use In Past 30 Days: No Smoking Status: Never smoker - Alcohol History How Often Do You Have a Drink Containing Alcohol: Monthly or less - Substance Use History Substance History: No History of Abuse - Travel History Recent Travel in the [place] Within the Last 8 Weeks: No Recent Travel Out of the Country Within the Last 8 Weeks: No - Immunization History Tetanus Immunization: <5 Years Hx Influenza Vaccine This Season: Yes Medications and Allergies Active Medications: Active Medications Hydrochlorothiazide (Hydrodiuril) 25 mg PO DAILY PADMINI Lisinopril (Prinivil) 10 mg PO DAILY PADMINI Sodium Chloride (Ns Flush) 2 ml IV.FLUSH UNSCH PRN PRN Reason: FLUSH AFTER USING IV ACCESS Allergies Allergy/AdvReac Type Severity Reaction Status Date / Time hydralazine Allergy Severe Tachycardia Verified 10/09/17 08:57 morphine Allergy Severe Shortness Verified 10/09/17 08:57 of Breath Home Medications Medication Instructions Recorded Confirmed Type hydrochlorothiazide 25 mg PO DAILY 10/09/17 10/09/17 History lisinopril 10 mg PO DAILY 10/09/17 10/09/17 History metformin 500 mg PO DAILY 10/09/17 10/09/17 History Exam Vital signs: Vital Signs 10/08/17 22:56 10/09/17 00:10 10/09/17 00:28 Temperature 98.8 F Pulse Rate 109 H 89 Respiratory Rate 22 18 Blood Pressure 179/96 H 127/68 Pulse Oximetry 100 99 99 10/09/17 03:43 10/09/17 05:19 10/09/17 08:00 Temperature 98.0 F 98.7 F Pulse Rate 81 82 82 Respiratory Rate 18 18 18 Blood Pressure 118/57 L 144/73 H 135/70 Pulse Oximetry 99 98 98 10/09/17 09:02 Temperature Pulse Rate 83 Respiratory Rate Blood Pressure Pulse Oximetry Intake & Output 10/08/17 10/09/17 10/09/17 18:59 06:59 18:59 Intake Total 500 / 500 Balance 500 / 500 Weight 134.717 kg 136 kg Intake: IV 500 / 500 Other: Weight On Admission 136 kg Narrative: GENERAL: This is a well-nourished, well-developed patient, in no apparent distress. Patient speaks in clear complete sentences. Patient is pleasant. HEENT: Head is atraumatic and normocephalic. Neck is supple without lymphadenopathy and trachea is midline. No JVD or carotid bruits. CARDIOVASCULAR: Regular rate and rhythm without murmurs, gallops, or rubs. RESPIRATORY: Clear to auscultation. Breath sounds equal bilaterally. No wheezes , rales, or rhonchi. Chest wall is nontender. No use of accessory muscles. GASTROINTESTINAL: Abdomen is nontender, nondistended. Abdomen soft. No obvious pulsatile mass or bruit. No CVA tenderness. Strong femoral pulses bilaterally. Normal bowel sounds in all quadrants. MUSCULOSKELETAL: Patient is moving upper and lower extremities freely. No calf tenderness or edema, no Homans sign. Strong pulses in upper and lower extremities. NEUROLOGICAL: Patient is alert and oriented. Cranial nerves 2-12 are grossly intact. No focal deficits and speech is clear. SKIN: No rash and turgor is normal. Results 10/08/17 23:47 10/08/17 23:47 Cardiac Enzymes 10/08/17 10/08/17 10/09/17 Range/Units 23:47 23:47 08:34 AST 10 L (15-37) U/L Troponin I Less than 0.02 L Less than 0.02 L (0.02-0.05) ng/mL B-Natriuretic Peptide Less than 2 (0-100) pg/mL Coagulation 10/08/17 10/08/17 Range/Units 23:47 23:47 PT 10.0 (9.8-11.6) sec APTT 26.8 (24.3-30.1) sec B-Natriuretic Peptide Less than 2 (0-100) pg/mL CBC 10/08/17 Range/Units 23:47 WBC 8.3 (4.0-11.0) th/mm3 RBC 5.00 (4.00-5.30) mil/mm3 Hgb 10.7 L (11.6-15.3) gm/dL Hct 34.1 L (35.0-46.0) % Plt Count 295 (150-450) th/mm3 Neut # (Auto) 5.5 (1.8-7.7) th/mm3 Lymph # (Auto) 2.3 (1.0-4.8) th/mm3 Gregg # (Auto) 0.4 (0.0-0.9) th/mm3 Eos # (Auto) 0.1 (0.0-0.4) th/mm3 Baso # (Auto) 0.1 (0.0-0.2) th/mm3 Comprehensive Metabolic Panel 10/08/17 Range/Units 23:47 Sodium 139 (136-145) meq/L Potassium 3.7 (3.5-5.1) meq/L Chloride 100 (98-107) meq/L Carbon Dioxide 27.7 (21.0-32.0) meq/L BUN 14 (7-18) mg/dL Creatinine 1.17 H (0.50-1.00) mg/dL Calcium 8.8 (8.5-10.1) mg/dL AST 10 L (15-37) U/L ALT 17 (10-53) U/L Alkaline Phosphatase 107 (45-117) U/L Total Protein 8.2 (6.4-8.2) g/dL Albumin 3.5 (3.4-5.0) g/dL Intake and Output 10/08/17 10/09/17 10/09/17 22:59 06:59 14:59 Intake Total 500 / 500 Balance 500 / 500 Intake: IV 500 / 500 Other: Weight 134.717 kg 136 kg Weight On Admission 136 kg Patient Weight 10/10/17 06:59 Weight 136 kg EKG interpretations - EKG EKG shows: sinus rhythm (EKGs are sinus rhythm with nonspecific T-wave changes.) Caprini VTE Risk Assessment Caprini VTE Risk Assessment: No/Low Risk (score <= 1) Caprini Risk Assessment Model: Point Value = 1 Point Value = 2 Point Value = 3 Point Value = 5 Age 41-60 Minor surgery BMI > 25 kg/m2 Swollen legs Varicose veins or History of unexplained or recurrent spontaneous Oral contraceptives or hormone replacement Sepsis (< 1 month) Serious lung disease, including pneumonia (< 1 month) Abnormal pulmonary function Acute myocardial infarction Congestive heart failure (< 1 month) History of inflammatory bowel disease Medical patient at bed rest Age 61-74 Arthroscopic surgery Major open surgery (> 45 min) Laparoscopic surgery (> 45 min) Malignancy Confined to bed (> 72 hours) Immobilizing plaster cast Central venous access Age >= 75 History of VTE Family history of VTE Factor V Leiden Prothrombin [id number] Lupus anticoagulant Anticardiolipin antibodies Elevated serum homocysteine Heparin-induced thrombocytopenia Other congenital or acquired thrombophilia Stroke (< 1 month) Elective arthroplasty Hip, pelvis, or leg fracture Acute spinal cord injury (< 1 month) Prophylaxis Regimen: Total Risk Factor Score Risk Level Prophylaxis Regimen 0-1 Low Early ambulation 2 Moderate Order ONE of the following: *Sequential Compression Device (SCD) *Heparin 5000 units SQ BID 3-4 Higher Order ONE of the following medications: *Heparin 5000 units SQ TID *Enoxaparin/Lovenox 40 mg SQ daily (WT < 150 kg, CrCl > 30 mL/min) *Enoxaparin/Lovenox 30 mg SQ daily (WT < 150 kg, CrCl > 10-29 mL/min) *Enoxaparin/Lovenox 30 mg SQ BID (WT < 150 kg, CrCl > 30 mL/min) AND/OR *Sequential Compression Device (SCD) 5 or more Highest Order ONE of the following medications: *Heparin 5000 units SQ TID (Preferred with Epidurals) *Enoxaparin/Lovenox 40 mg SQ daily (WT < 150 kg, CrCl > 30 mL/min) *Enoxaparin/Lovenox 30 mg SQ daily (WT < 150 kg, CrCl > 10-29 mL/min) *Enoxaparin/Lovenox 30 mg SQ BID (WT < 150 kg, CrCl > 30 mL/min) AND *Sequential Compression Device (SCD) Assessment and Plan - Assessment (1) Chest pain Code(s): R07.9 - Chest pain, unspecified Status: Acute (2) Hypertension Code(s): I10 - Essential (primary) hypertension Status: Acute (3) Diabetes Code(s): E11.9 - Type 2 diabetes mellitus without complications Status: Acute - Plan * Chest pain: Patient has had serial cardiac enzymes and EKGs for ruling out purposes. She has been evaluated by Dr. Madera of cardiology in the chest pain center and will undergo a Lexiscan. Patient will be discharged home if her stress test is nonischemic with instructions to follow-up with PCP and return to ED for interval issues. * Hypertension: Continue medication. * Diabetes: Hold metformin for 2 days as she had a CT scan with contrast. Patient also should discuss being on statin medication with her primary care physician being that she does have diabetes. Patient is stable at this time. She is agreeable to this plan. H&P: Quality - VTE Deep Vein Thrombosis/Pulmonary Embolism Present on Admission: No
[2017-10-09 12:49] VITALS: O2SAT 99
--- NOTE | 2017-10-09 13:32 | NM ---
EXAM DATE: 10/09/2017 1:11 PM EDT AGE/SEX: 47 years / Female INDICATIONS:Angina. . Substernal chest pain. CLINICAL DATA: This is the patient's initial encounter. Patient reports that signs and symptoms have been present for 1 day and indicates a pain score of 5/10. MEDICAL/SURGICAL HISTORY: Diabetes mellitus type II. Hypertension. None. COMPARISON: No prior exams available for comparison. DOSE: 11.0 mCi Tc 99m Myoview at rest 35.0 mCi [id number] at stress 0.4 mg Lexiscan STRESS SYMPTOMS: Dyspnea, chest pain and dizziness. EJECTION FRACTION: 61 % TECHNIQUE: The patient underwent pharmacologic stress with infusion of prescribed dose. Continuous ECG tracing was monitored during stress. Gated SPECT imaging was performed after stress and conventi onal SPECT imaging was performed at rest. The examination was performed on a SPECT/CT scanner, both attenuation and non-corrected datasets were reviewed. FINDINGS: Distribution: The maximum perfused segment at stress is in the inferior wall. Perfusion Study: There is a small reversible perfusion defect suspected at the lateral wall near th e base. Gated Study: There are intact wall motion and wall thickening without hypokinetic or dyskinetic segm ents. The ejection fraction is calculated at 61%. RISK CATEGORY: Low (<1% Annual Motality Rate) CONCLUSION: 1. Small reversible perfusion defect lateral wall. 2. Normal ejection fraction. Electronically signed by: Abdullahi Piña MD 10/09/2017 1:30 PM EDT
[2017-10-09] MEDS ORDERED: Dextrose 50% in Water 50 ML Vial IV.PUSH PRN (13:56)
[2017-10-09 16:32] VITALS: BP 149/76; PULSE 80; TEMP 98.8
[2017-10-09] MEDS ORDERED: Insulin NovoLIN Regular Correctional Sugar Inj SQ SCH (17:00)
--- NOTE | 2017-10-09 20:32 | ECG ---
Date Performed: 10/08/2017 Time Performed: 23:57:17 PTAGE: 47 years EKG: Sinus rhythm NONSPECIFIC T-WAVE ABNORMALITY BORDERLINE ECG Since PREVIOUS TRACING , no significant change noted PREVIOUS TRACIN05/23/2017 18.02 DOCTOR: Chiquita Madera Interpretating Date/Time 10/09/2017 20:31:02
[2017-10-10] MEDS ORDERED: amLODIPine 5 MG Tablet PO SCH (09:00)
== END 2017-10-09 17:52 | disposition home or self-care (01) ==
LOC: NEPC 22:51 → NEDA 22:51 → NEPFCDU 10-09 08:06
PROVIDERS: ADMIT Internal Medicine Cardiovascular Disease; ATTEND Internal Medicine Cardiovascular Disease